=== PATIENT | male | born 2000 | race Caucasian/White ===

== ENCOUNTER 2018-08-02 01:49 | Emergency (ER) | payer SELFPAY ==
[2018-08-02 01:56] VITALS: BP 114/71
--- NOTE | 2018-08-02 02:15 | EDPHY ---
H & P Stated Complaint: lac to back of right thigh. Unknown how he injured it. +ETOH Time Seen by Provider: 08/02/18 02:10 HPI/ROS: Chief Complaint: Right leg laceration HPI: 17-year-old male was climbing a fence this morning slipped in impaled his right leg on a spike approximately 2.5 in long sticking out from the top of the fence. This is a metal spike on a metal fence. He is up-to-date in his tetanus. He does admit to drinking multiple alcoholic drinks this morning. Did not hit his head. No loss of conscious. He has been ambulating without any difficulty. Denies any other injuries. ROS: 10 systems were reviewed and were negative except those elements noted in the HPI. PMH: Denies Social History: No smoking, occasional alcohol, no recreational drug use Family History: non-contributory Physical Exam: Gen: Awake, Alert, No Distress HEENT: Nose: no rhinorrhea Eyes: PERRLA, EOMI Mouth: Moist mucosa Neck: Supple, no JVD Back: no CVA tenderness, no midline tenderness Ext: There is a 1.5 cm laceration on his right posterior thigh with minimal active bleeding. Skin: no rash Neuro: CN II-XII intact, Sensation grossly intact, Strength 5/5 in bilateral upper and lower extremities - Personal History Current Tetanus Diphtheria and Acellular Pertussis (TDAP): Yes - Medical/Surgical History Hx Asthma: No Hx Chronic Respiratory Disease: No Hx Diabetes: No Hx Cardiac Disease: No Hx Renal Disease: No Hx Cirrhosis: No Hx Alcoholism: No Hx HIV/AIDS: No Hx Splenectomy or Spleen Trauma: No Other PMH: denies - Social History Smoking Status: Never smoked Constitutional: Initial Vital Signs Temperature (C) 36.4 C 08/02/18 01:52 Heart Rate 92 08/02/18 01:52 Respiratory Rate 16 08/02/18 01:52 Blood Pressure 114/71 08/02/18 01:52 O2 Sat (%) 94 08/02/18 01:52 O2 Delivery Mode Room Air Allergies/Adverse Reactions: No Known Allergies Allergy (Unverified 08/02/18 01:52) Home Medications: Medication Instructions Recorded NK [No Known Home Meds] 08/02/18 Medical Decision Making Procedures: Procedure: Laceration repair. Verbal consent was obtained from the patient. The 1.5 cm laceration on the right thigh was anesthetized in the usual fashion. The wound was irrigated profusely including deep irrigation with an angiocath and syringe 500 cc performed by myself.\, draped and explored to its base with a gloved finger. There were no deep structures involved. No tendon injury was identified. The wound was repaired with 2, 4-0 Ethilon simple interrupted sutures. The wound repair was uncomplicated. The procedure was performed by myself. ED Course/Re-evaluation: 17-year-old with impaled injury to his right thigh. He has been irrigated profusely. To loosely approximate sutures have been placed. Patient is been instructed to follow up with [facility] for wound check in 2 days or return to the emergency department. Departure - Departure Disposition: Home, Routine, Self-Care Clinical Impression: Laceration Condition: Good Instructions: Laceration (ED), Care For Your Stitches (ED) Additional Instructions: Sutures need to be removed in 7-10 days. Follow up at [facility] in 2-3 days for wound check. Return to the emergency department for increasing pain, redness, fevers, discharge from the wound, or any other concerns. Referrals: [facility],. [Clinic] - As per Instructions
== END 2018-08-02 03:09 | disposition home or self-care (01) ==
PROC: 0HQKXZZ Repair Right Lower Leg Skin, External Approach (ICD-10-PCS; principal; 2018-08-02)
DX: S71.111A Laceration without foreign body, right thigh, initial encounter (principal); W45.8XXA Other foreign body or object entering through skin, initial encounter; Y93.39 Activity, other involving climbing, rappelling and jumping off; Y99.8 Other external cause status